=== PATIENT | male | born 2000 | race Hispanic/Latino ===

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

== ENCOUNTER 2021-09-10 13:33 | Emergency (ER) | payer OTHER ==
[2021-09-10] MEDS ORDERED: Boostrix 0.5 ML (Tdap) VIAL ONE (15:13)
== END 2021-09-10 15:30 | disposition home or self-care (01) ==
LOC: MADERS 13:33
DX: S61.211A Laceration without foreign body of left index finger without damage to nail, initial encounter (principal); W26.0XXA Contact with knife, initial encounter
CPT/HCPCS: 90471; 90715; 99282

== ENCOUNTER 2022-03-30 10:20 | Emergency (ER) | payer OTHER | END 2022-03-30 11:31 | disposition home or self-care (01) | LOC: MADERS 10:20 | DX: S93.401A Sprain of unspecified ligament of right ankle, initial encounter (principal); E66.9 Obesity, unspecified; X50.3XXA Overexertion from repetitive movements, initial encounter; Z68.45 Body mass index [BMI] 70 or greater, adult ==

== ENCOUNTER 2023-04-25 22:00 | Emergency (ER) | payer OTHER, SELFPAY ==
[2023-04-25] MEDS ORDERED: Ibuprofen 800 MG TAB ONE (22:26)
[2023-04-25] MEDS ORDERED: Amoxicillin/Potassium Clav 875 MG TAB ONE (22:26)
[2023-04-25] MEDS ORDERED: HYDROcodone/Acetaminophen 10/325 mg Tablet ONE (22:26)
== END 2023-04-25 22:32 | disposition home or self-care (01) ==
LOC: MADERS 22:00
DX: K05.00 Acute gingivitis, plaque induced (principal); K02.9 Dental caries, unspecified; E66.9 Obesity, unspecified
CPT/HCPCS: 99282